=== PATIENT | male | born 1950 | race Caucasian/White ===

== ENCOUNTER 2017-09-11 19:26 | Emergency (ER) | payer MEDICARE ==
[~2017-09-11] VITALS: Ht 195.6 cm; Wt 102.1 kg
[~2017-09-11 19:26] MED LIST changes: -GABA300 PO
[2017-09-11] MEDS ORDERED: GABA300 PO (19:34)
[2017-09-11] MEDS ORDERED: CLOP75 PO (19:34)
[2017-09-11 23:00] LABS: Anion Gap 8 mmol/L (6-16); Blood Urea Nitrogen 15 mg/dL (8-24); Bun/Creatinine Ratio 12.5 (12.0-20.0); CO2, Blood 25 mmol/L (21-32); Calcium, Blood 7.8 mg/dL (8.5-10.1); Chloride, Blood 106 mmol/L (98-108); Glomerular Filtration Rate >60 (60-); Glucose, Blood 111 mg/dL (70-99); Potassium, Blood 3.7 mmol/L (3.5-5.5); Sodium, Blood 139 mmol/L (136-145); Troponin I <0.015 ng/mL (0.000-0.040)
[2017-09-11 23:26] LABS: BASOPHILS ABSOLUTE AUTO 0.02 K/mm3 (0.00-0.23); BASOPHILS PERCENT AUTO 0 % (0-2); EOSINOPHILS ABSOLUTE AUTO 0.21 K/mm3 (0.00-0.68); EOSINOPHILS PERCENT AUTO 3 % (0-6); IMMATURE GRAN ABSOLUTE AUTO 0.02 K/mm3 (0.00-0.10); IMMATURE GRAN PERCENT AUTO 0 % (0-1); LYMPHOCYTES ABSOLUTE AUTO 1.51 K/mm3 (0.84-5.20); LYMPHOCYTES PERCENT AUTO 20 % (21-46); MONOCYTES ABSOLUTE AUTO 0.55 K/mm3 (0.16-1.47); MONOCYTES PERCENT AUTO 7 % (4-13); Mean Corpuscular HGB 22.1 pg (26.0-34.0); Mean Corpuscular HGB Conc 28.6 g/dL (31.5-36.5); Mean Corpuscular Volume 78 fL (80-100); Mean Platelet Volume 9.2 fL (9.1-12.4); NEUTROPHILS ABSOLUTE AUTO 5.36 K/mm3 (1.96-9.15); NEUTROPHILS PERCENT AUTO 70 % (41-73); Platelet Count 402 K/mm3 (150-400); RDW Coefficient Variation 16.1 % (11.7-14.2); RDW Standard Deviation 45.3 fL (35.1-46.3); Red Blood Cell Count 2.71 M/mm3 (4.30-5.90); White Blood Cell Count 7.67 K/mm3 (4.00-11.30)
== END 2017-09-12 00:49 | disposition home or self-care (01) ==
LOC: ER 19:26
PROVIDERS: Emergency Medicine
DX: D64.9 Anemia, unspecified (principal); Z88.1 Allergy status to other antibiotic agents; Z88.0 Allergy status to penicillin; Z79.899 Other long term (current) drug therapy; Z87.891 Personal history of nicotine dependence
CPT/HCPCS: 36415; 36430; 80048; 84484; 85025; 86850; 86900; 86901; 86923; 93005; 93010; 99284-25; P9016

== ENCOUNTER → 2017-09-11 | Outpatient (CLI) | payer MEDICARE ==
[~2017-09-11] MED LIST: AMIT50 PO; ASPI81EC PO; CITA20 PO; CLOP75 PO; DAILY VITAMIN; DOCU100 PO; DOXA2 PO; GABA300 PO; LEVFLO500 PO; METO25ER PO; Metoprolol Succ25 MG PO; ONDA8 PO; OXYC30 PO; OXYC30ER PO; PRAV20 PO; Zithromax250 MG PO
[2017-09-11 18:16] LABS: BASOPHILS ABSOLUTE AUTO 0.04 K/mm3 (0.00-0.23); BASOPHILS PERCENT AUTO 0 % (0-2); EOSINOPHILS ABSOLUTE AUTO 0.16 K/mm3 (0.00-0.68); EOSINOPHILS PERCENT AUTO 2 % (0-6); Hematocrit 22.4 % (37.0-53.0); Hemoglobin 6.5 g/dL (13.5-17.5); IMMATURE GRAN ABSOLUTE AUTO 0.04 K/mm3 (0.00-0.10); IMMATURE GRAN PERCENT AUTO 0 % (0-1); LYMPHOCYTES ABSOLUTE AUTO 1.55 K/mm3 (0.84-5.20); LYMPHOCYTES PERCENT AUTO 17 % (21-46); MONOCYTES PERCENT AUTO 5 % (4-13); Mean Corpuscular HGB 22.2 pg (26.0-34.0); Mean Corpuscular Volume 77 fL (80-100); NEUTROPHILS ABSOLUTE AUTO 6.97 K/mm3 (1.96-9.15); NEUTROPHILS PERCENT AUTO 75 % (41-73); Platelet Count 441 K/mm3 (150-400); RDW Standard Deviation 44.7 fL (35.1-46.3); Red Blood Cell Count 2.93 M/mm3 (4.30-5.90); White Blood Cell Count 9.26 K/mm3 (4.00-11.30)
[2017-09-11 18:30] LABS: Albumin, Blood 3.1 g/dL (3.4-5.0); Albumin/Globulin Ratio 0.7 (0.8-1.8); Bilirubin, Total 0.2 mg/dL (0.1-1.0); Bun/Creatinine Ratio 10.4 (12.0-20.0); Calcium, Blood 8.5 mg/dL (8.5-10.1); Creatinine, Blood 1.44 mg/dL (0.60-1.20); Globulin, Blood 4.5 g/dL (2.2-4.0); Potassium, Blood 4.4 mmol/L (3.5-5.5); Total Protein, Blood 7.6 g/dL (6.4-8.2)
== END | disposition home or self-care (01) ==
LOC: LAB SHORT 18:10 → LAB EV 18:10
PROVIDERS: Physician Assistant
DX: I95.1 Orthostatic hypotension (principal)
CPT/HCPCS: 80053; 85025

== ENCOUNTER 2019-04-21 13:37 | Emergency (ER) | payer MEDICARE ==
[~2019-04-21] VITALS: Ht 198.1 cm; Wt 109.7 kg
[~2019-04-21 13:37] MED LIST changes: +GABA300 PO; +KETO10 PO
== END 2019-04-21 18:15 | disposition home or self-care (01) ==
LOC: ER 13:37
DX: S61.012A Laceration without foreign body of left thumb without damage to nail, initial encounter (principal); Z23 Encounter for immunization; Z87.891 Personal history of nicotine dependence; W26.8XXA Contact with other sharp object(s), not elsewhere classified, initial encounter
CPT/HCPCS: 12001; 90471; 90714; 99282-25

== ENCOUNTER 2020-09-02 10:11 | Emergency (ER) | payer MEDICARE ==
[~2020-09-02] VITALS: Ht 200.7 cm; Wt 122.5 kg
[2020-09-02 10:42] LABS: BASOPHILS ABSOLUTE AUTO 0.02 K/mm3 (0.00-0.23); BASOPHILS PERCENT AUTO 0 % (0-2); EOSINOPHILS ABSOLUTE AUTO 0.01 K/mm3 (0.00-0.68); EOSINOPHILS PERCENT AUTO 0 % (0-6); Hematocrit 45.8 % (37.0-53.0); Hemoglobin 14.9 g/dL (13.5-17.5); IMMATURE GRAN ABSOLUTE AUTO 0.02 K/mm3 (0.00-0.10); IMMATURE GRAN PERCENT AUTO 0 % (0-1); LYMPHOCYTES ABSOLUTE AUTO 0.53 K/mm3 (0.84-5.20); LYMPHOCYTES PERCENT AUTO 8 % (21-46); MONOCYTES ABSOLUTE AUTO 0.38 K/mm3 (0.16-1.47); MONOCYTES PERCENT AUTO 6 % (4-13); Mean Corpuscular HGB 28.8 pg (26.0-34.0); Mean Corpuscular HGB Conc 32.5 g/dL (31.5-36.5); Mean Corpuscular Volume 89 fL (80-100); Mean Platelet Volume 10.6 fL (9.1-12.4); NEUTROPHILS ABSOLUTE AUTO 5.84 K/mm3 (1.96-9.15); NEUTROPHILS PERCENT AUTO 86 % (41-73); Platelet Count 153 K/mm3 (150-400); RDW Coefficient Variation 14.2 % (11.7-14.2); RDW Standard Deviation 46.1 fL (35.1-46.3); Red Blood Cell Count 5.17 M/mm3 (4.30-5.90)
[2020-09-02] MEDS ORDERED: OMEP20ER PO (10:46)
[2020-09-02] MEDS ORDERED: ASPI81CH PO (10:46)
[2020-09-02 11:05] LABS: Alanine Aminotransfer (ALT/SGP 17 U/L (12-78); Albumin, Blood 3.8 g/dL (3.4-5.0); Albumin/Globulin Ratio 0.8 (0.8-1.8); Alk Phos 75 U/L (50-136); Anion Gap 8 mmol/L (6-16); Aspartate Aminotrans (AST/SGOT 17 U/L (12-37); Blood Urea Nitrogen 19 mg/dL (8-24); CO2, Blood 24 mmol/L (21-32); Calcium, Blood 8.7 mg/dL (8.5-10.1); Chloride, Blood 101 mmol/L (98-108); Creatinine, Blood 1.46 mg/dL (0.60-1.20); Globulin, Blood 4.8 g/dL (2.2-4.0); Glomerular Filtration Rate 51 (60-); Glucose, Blood 156 mg/dL (70-99); Potassium, Blood 3.9 mmol/L (3.5-5.5); Sodium, Blood 133 mmol/L (136-145); Total Protein, Blood 8.6 g/dL (6.4-8.2); Troponin I <0.015 ng/mL (0.000-0.040)
[2020-09-02 12:49] LABS: SARS-Cov-2 (COVID-19) PCR, MMC POSITIVE (NEGATIVE)
== END 2020-09-02 14:06 | disposition home or self-care (01) ==
LOC: ER 10:11
PROVIDERS: Emergency Medicine; Physician Assistant
DX: U07.1 COVID-19 (principal); J44.9 Chronic obstructive pulmonary disease, unspecified; I25.2 Old myocardial infarction; I25.10 Atherosclerotic heart disease of native coronary artery without angina pectoris; Z88.1 Allergy status to other antibiotic agents; Z88.0 Allergy status to penicillin; Z79.82 Long term (current) use of aspirin; Z79.899 Other long term (current) drug therapy
CPT/HCPCS: 36415; 71046; 71260; 80053; 84484; 85025; 93005; 93010; 99285-25; Q9967; U0004

== ENCOUNTER 2020-09-08 12:29 | Inpatient (IN) | payer MEDICARE ==
[~2020-09-08] VITALS: Ht 200.7 cm; Wt 104.3 kg
[~2020-09-08 12:29] MED LIST changes: +ASPI81CH PO; +OMEP20ER PO
[2020-09-08 13:07] LABS: BASOPHILS ABSOLUTE AUTO 0.03 K/mm3 (0.00-0.23); BASOPHILS PERCENT AUTO 0 % (0-2); EOSINOPHILS ABSOLUTE AUTO 0.09 K/mm3 (0.00-0.68); EOSINOPHILS PERCENT AUTO 1 % (0-6); Hematocrit 41.8 % (37.0-53.0); Hemoglobin 13.7 g/dL (13.5-17.5); IMMATURE GRAN ABSOLUTE AUTO 0.03 K/mm3 (0.00-0.10); IMMATURE GRAN PERCENT AUTO 0 % (0-1); LYMPHOCYTES ABSOLUTE AUTO 1.05 K/mm3 (0.84-5.20); LYMPHOCYTES PERCENT AUTO 12 % (21-46); MONOCYTES ABSOLUTE AUTO 0.34 K/mm3 (0.16-1.47); MONOCYTES PERCENT AUTO 4 % (4-13); Mean Corpuscular HGB 28.6 pg (26.0-34.0); Mean Corpuscular HGB Conc 32.8 g/dL (31.5-36.5); Mean Corpuscular Volume 87 fL (80-100); Mean Platelet Volume 10.9 fL (9.1-12.4); NEUTROPHILS ABSOLUTE AUTO 7.02 K/mm3 (1.96-9.15); NEUTROPHILS PERCENT AUTO 82 % (41-73); Platelet Count 189 K/mm3 (150-400); RDW Coefficient Variation 14.1 % (11.7-14.2); Red Blood Cell Count 4.79 M/mm3 (4.30-5.90); White Blood Cell Count 8.56 K/mm3 (4.00-11.30)
[2020-09-08 13:14] LABS: Alanine Aminotransfer (ALT/SGP 23 U/L (12-78); Albumin, Blood 2.8 g/dL (3.4-5.0); Albumin/Globulin Ratio 0.6 (0.8-1.8); Alk Phos 72 U/L (50-136); Anion Gap 6 mmol/L (6-16); Aspartate Aminotrans (AST/SGOT 28 U/L (12-37); Bilirubin, Total 0.8 mg/dL (0.1-1.0); Blood Urea Nitrogen 20 mg/dL (8-24); Bun/Creatinine Ratio 15.5 (12.0-20.0); CO2, Blood 29 mmol/L (21-32); Calcium, Blood 8.4 mg/dL (8.5-10.1); Chloride, Blood 99 mmol/L (98-108); Creatinine, Blood 1.29 mg/dL (0.60-1.20); Globulin, Blood 4.9 g/dL (2.2-4.0); Glomerular Filtration Rate 55 (60-); Glucose, Blood 109 mg/dL (70-99); Potassium, Blood 3.5 mmol/L (3.5-5.5); Sodium, Blood 134 mmol/L (136-145); Total Protein, Blood 7.7 g/dL (6.4-8.2); Troponin I <0.015 ng/mL (0.000-0.040)
--- NOTE | 2020-09-08 19:09 | NUR ---
arrived from er, settled in rm, assessed and admit completed, call light in reach, saline locked, rm air, ls diminished in R base, a+o, able to answer assessment questions, sbar shared with noc nurse
[2020-09-09 04:41] LABS: BASOPHILS PERCENT AUTO 0 % (0-2); EOSINOPHILS PERCENT AUTO 0 % (0-6); Hematocrit 39.7 % (37.0-53.0); Hemoglobin 13.2 g/dL (13.5-17.5); IMMATURE GRAN ABSOLUTE AUTO 0.04 K/mm3 (0.00-0.10); IMMATURE GRAN PERCENT AUTO 0 % (0-1); LYMPHOCYTES ABSOLUTE AUTO 0.54 K/mm3 (0.84-5.20); LYMPHOCYTES PERCENT AUTO 6 % (21-46); MONOCYTES ABSOLUTE AUTO 0.12 K/mm3 (0.16-1.47); MONOCYTES PERCENT AUTO 1 % (4-13); Mean Corpuscular HGB 28.9 pg (26.0-34.0); Mean Corpuscular HGB Conc 33.2 g/dL (31.5-36.5); Mean Corpuscular Volume 87 fL (80-100); Mean Platelet Volume 10.6 fL (9.1-12.4); NEUTROPHILS ABSOLUTE AUTO 8.87 K/mm3 (1.96-9.15); NEUTROPHILS PERCENT AUTO 93 % (41-73); Platelet Count 186 K/mm3 (150-400); RDW Coefficient Variation 13.9 % (11.7-14.2); RDW Standard Deviation 44.9 fL (35.1-46.3); Red Blood Cell Count 4.56 M/mm3 (4.30-5.90); White Blood Cell Count 9.57 K/mm3 (4.00-11.30)
--- NOTE | 2020-09-09 04:45 | NUR ---
SHIFT SUMMARY ASSUMED CARE OF PT AT 1900. PT IS A/OX4. HEART SOUNDS REGULAR. UPON VITALS PT O2 SATURATION WAS 60%, PT DID NOT C/O SOB BUT HIS MOUTH AND NOSE WERE DISCOLORED, PT WAS PUT ON 7L NC TO REACH 85%. RT WAS CONSULTED. PT IS NOW ON HIGH FLOW AT 14L WITH SATURATIONS AT 88-90%. PT WAS NONCOMPLIANT WITH CPAP. LUNG SOUNDS HAVE CRACKLES AT THE BASES AND EXP WHEEZING T/O. PT WAS INDEPENDENT TO BATHROOM. CALL LIGHT IN REACH, BED IN LOWEST POSTION.
[2020-09-09 05:04] LABS: Bun/Creatinine Ratio 22.1 (12.0-20.0); Calcium, Blood 8.4 mg/dL (8.5-10.1); Creatinine, Blood 1.22 mg/dL (0.60-1.20); Potassium, Blood 3.6 mmol/L (3.5-5.5)
--- NOTE | 2020-09-09 19:21 | NUR ---
a+o, call light in reach, independat in rm, saline locked, 15l via nc, independant in rm sba with lines, calls appropriatly, medicated as prescribed, tried to reduce o2 but rapid drop in o2 level occured, bsr shared with noc nurse and pt
--- NOTE | 2020-09-10 06:20 | NUR ---
SHIFT SUMMARY ASSUMED CARE OF PT AT 1900. PT IS A/OX4. HEART SOUNDS REGULAR, LUNG SOUNDS HAVE CRACKLES AND WHEEXING T/O. PT HAS OCCASIONAL WET COUGH. PT IS ON 15L HIGH FLOW NC. PT DESATURATES WITH ACTIVITY AND TAKES A COUPLE MIN TO GET BACK UP TO 88%. PT IS INDEPENDNT TO BATHROOM. PT WAS VERY SWEATY T/O THE NIGHT AND COMPLAINED OF BEING COLD PT WAS AFEBRILE. CALL LIGHT IN REACH, BED IN LOWEST POSTION.
--- NOTE | 2020-09-10 17:38 | NUR ---
SUMMARY PT SITTING UP IN BED WATCHING TV, PT HAS BEEN INDEPENDENT IN THE ROOM, PT REMAINS ON 15L HIGH FLOW O2, PT DESATS WITH ACTIVITY INTO THE 80'S, TAKES A FEW MINUTES TO RECOVER, ENCOURAGED PT TO PRONE WHEN ABLE, PT REPORTS BREATHING BETTER AFTER PRONING, PT DENIES ANY PAIN OR NAUSEA, VSS, WILL CONT TO MONITOR
--- NOTE | 2020-09-11 05:51 | NUR ---
SHIFT SUMMARY A/OX4, PLEASANT AND COOPERATIVE WITH CARE. DENIES PAIN AT THIS TIME. CURRENTLY ON AIRVO 60L WITH FIO2 OF 89% CONT. BIOX WITH SATS GREATER THAN 92. IND IN ROOM WITH FWW. VSS, NO ACUTE CHANGES AT THIS TIME. BED IN LOWEST POSITION WITH CALL LIGHT IN REACH. WILL CONTINUE TO MONITOR AND REPORT TO ONCOMING RN.
--- NOTE | 2020-09-11 19:13 | NUR ---
Shift Summary AOx4, pleasant and cooperative with care. Up to bathroom independently. Sats drops with ambulation to mid 70's. Having patient change from AirVo to 15L HF NC during ambulation to sustain oxygen supplementation. Denies pain, nausea, vomiting, diarrhea. Patient has no teeth. Offered to change diet to mech soft, patient declined. Follows instructions well, calls for needs appropriately. Worked with PT this shift. Report given to night CAR Mcgee.
--- NOTE | 2020-09-12 18:18 | NUR ---
Shift Summary A/Ox4, denies pain. C/O epistaxis last night d/t dry nasal passages. NS nasal spray ordered by Dr. Sheth. No episodes of epstaxis today. Continues to refuse mech soft and soft bite size diet, states "not hungry" because not physically active. PO fluid intake is good. L/S are coarse today with some expiratory wheezes. Dyspneic with exertion, continues to desat with activity but O2 remained above 83% and quickly rebounds/maintains above 87%. Independently prones as needed. Airvo 60 LPM, 60% FiO2. WCTM.
--- NOTE | 2020-09-13 05:07 | NUR ---
SHIFT SUMMARY A/OX4, IND IN ROOM WITH FWW. CURRENTLY ON AIRVO 60L WITH SATS GREATER THAN 90. PT ABLE TO PRONE SELF T/O NIGHT. VSS, NO ACUTE CHANGES AT THIS TIME. BED IN LOWEST POSITION WITH CALL LIGHT IN REACH. WILL CONTINUE TO MONITOR AND REPORT TO ONCOMING RN.
--- NOTE | 2020-09-13 16:47 | NUR ---
NO ACUTE CHANGES. PT REMAINS ON 60 AIR VO AND 15L HIGH FLOW. HE HAS HAD NO COMPLAINTS, HE CONTINUES TO DESAT TO THE LOW 80'S WITH EXERCTION. PT IS INDEPENDENT IN THE ROOM. CALL LIGHT WITHIN REACH.
[2020-09-14 05:02] LABS: Hemoglobin 13.2 g/dL (13.5-17.5); Mean Corpuscular Volume 88 fL (80-100); Mean Platelet Volume 10.4 fL (9.1-12.4); Platelet Count 371 K/mm3 (150-400); RDW Coefficient Variation 14.1 % (11.7-14.2); Red Blood Cell Count 4.55 M/mm3 (4.30-5.90); White Blood Cell Count 13.77 K/mm3 (4.00-11.30)
[2020-09-14 05:22] LABS: Anion Gap 3 mmol/L (6-16); Blood Urea Nitrogen 32 mg/dL (8-24); Bun/Creatinine Ratio 29.4 (12.0-20.0); CO2, Blood 29 mmol/L (21-32); Calcium, Blood 8.2 mg/dL (8.5-10.1); Chloride, Blood 104 mmol/L (98-108); Creatinine, Blood 1.09 mg/dL (0.60-1.20); Glomerular Filtration Rate >60 (60-); Glucose, Blood 142 mg/dL (70-99); Potassium, Blood 4.5 mmol/L (3.5-5.5); Sodium, Blood 136 mmol/L (136-145)
--- NOTE | 2020-09-14 19:18 | NUR ---
NO ACUTE CHANGES THIS SHIFT. PATIENT REMAINS ON HFNC AT 60L WITH FIO2 AT 85%. PATIENT SWITCHES FROM AIRVO TO NC AT 15L TO AMBULATE TO THE RESTROOM. A/OX4, UP INDEPENDENT IN ROOM. CALLS APPROPRIATELY FOR ASSISTANCE. TOLERATING DIET. DENIES ANY PAIN OR DISCOMFORT.
--- NOTE | 2020-09-15 05:27 | NUR ---
SCIENCE CENTER DISPLAY BUILDER SUMMARY NO ACUTE CHANGES THIS SHIFT. PT AAOX4 AND PLEASANT. INDEPENDENT IN ROOM. REMAINS ON AIRVO AT 60L 85% FIO2. PT REPORTS THAT HIS BREATHING IS IMPROVING A LITTLE BIT EACH DAY AND THAT HE DOESN'T GET SOB WHEN HE GETS UP TO THE BATHROOM. STILL USING HIGH FLOW NC AT 15L WHEN HE GETS UP TO BATHROOM, O2 SATS OCCASIONALLY WILL DROP TO MID 80'S DURING THIS TIME. VSS, WILL CONTINUE TO MONITOR.
--- NOTE | 2020-09-15 18:04 | NUR ---
NO ACUTE CHANGES THIS SHIFT. PATIENT REMAINS ON 60L O2 TO FIO2 AT 83%. SATS 90- 92% AT REST. PATIENT DOES DESAT TO ABOUT 86-88% WITH ACTIVITY, BUT DOES RECOVER QUICKLY. PATIENT IS INDEPENDENT IN ROOM AND CALLS APPROPRIATELY FOR ASSISTANCE.
[2020-09-16 05:13] LABS: BASOPHILS ABSOLUTE AUTO 0.02 K/mm3 (0.00-0.23); BASOPHILS PERCENT AUTO 0 % (0-2); EOSINOPHILS ABSOLUTE AUTO 0.04 K/mm3 (0.00-0.68); EOSINOPHILS PERCENT AUTO 0 % (0-6); Hemoglobin 13.9 g/dL (13.5-17.5); IMMATURE GRAN ABSOLUTE AUTO 0.17 K/mm3 (0.00-0.10); IMMATURE GRAN PERCENT AUTO 1 % (0-1); LYMPHOCYTES ABSOLUTE AUTO 0.57 K/mm3 (0.84-5.20); LYMPHOCYTES PERCENT AUTO 4 % (21-46); MONOCYTES ABSOLUTE AUTO 0.48 K/mm3 (0.16-1.47); MONOCYTES PERCENT AUTO 4 % (4-13); Mean Corpuscular HGB 29.2 pg (26.0-34.0); Mean Corpuscular HGB Conc 33.1 g/dL (31.5-36.5); Mean Corpuscular Volume 88 fL (80-100); Mean Platelet Volume 10.1 fL (9.1-12.4); NEUTROPHILS ABSOLUTE AUTO 12.08 K/mm3 (1.96-9.15); NEUTROPHILS PERCENT AUTO 90 % (41-73); Platelet Count 354 K/mm3 (150-400); RDW Standard Deviation 44.9 fL (35.1-46.3); Red Blood Cell Count 4.76 M/mm3 (4.30-5.90); White Blood Cell Count 13.36 K/mm3 (4.00-11.30)
[2020-09-16 05:38] LABS: Albumin, Blood 2.4 g/dL (3.4-5.0); Anion Gap 4 mmol/L (6-16); Blood Urea Nitrogen 33 mg/dL (8-24); Bun/Creatinine Ratio 33.3 (12.0-20.0); CO2, Blood 27 mmol/L (21-32); Calcium, Blood 8.4 mg/dL (8.5-10.1); Chloride, Blood 103 mmol/L (98-108); Creatinine, Blood 0.99 mg/dL (0.60-1.20); Glomerular Filtration Rate >60 (60-); Glucose, Blood 131 mg/dL (70-99); Magnesium, Blood 2.2 mg/dL (1.6-2.4); Phosphorus, Blood 3.3 mg/dL (2.5-4.9); Potassium, Blood 4.4 mmol/L (3.5-5.5); Sodium, Blood 134 mmol/L (136-145)
--- NOTE | 2020-09-16 05:54 | NUR ---
SHIFT SUMMARY NO ACUTE CHANGES TO REPORT THIS SHIFT. PT HAS RESTED MOST OF THE NIGHT AND HAS DENIED NEEDS, PT IS STILL ON AIRVO 60L, SATS ARE MAINTAINED GREATER THAN 95%. PT AMBULATES TO TO THE BATHROOM INDEPENDENTLY AND PLACES HIGH FLOW O2 WHEN AMBULATING. LUNGS ARE DIMINSHED T/O, HE REPORTS PRODUCTIVE COUGH. VITALS ARE STABLE. RESTFUL NIGHT, BED IN LOWEST POSITION, CALL LIGHT WITHIN REACH.
--- NOTE | 2020-09-16 18:08 | NUR ---
PT IS WEANING OFF HIGH FLOW . HE WAS ABLE TO GIVE HIMSELF BEDBATH WITH NO ISSUES. UP IN RECLINER AND IMPROVING THROUGHOUT THE SHIFT. HE IS ALERT AND ORIENTED AND ABLE TO EXPRESS ANY NEEDS. NO COMPLAINTS OF PAIN THIS SHIFT. CALL LIGHT WITHIN REACH.
--- NOTE | 2020-09-17 05:24 | NUR ---
SHIFT SUMMARY: PT IS ALERT AND ORIENTED. PT IS CALM AND COOPERATIVE WITH CARE. PT CALLS APPROPRIATELY. PT IS INDEPENDENT IN THE ROOM. PT ON AIRVO 45L @ 45%, KEEPING SATS > 90%. PT DENIES PAIN, NAUSEA, AND VOMITING. PT REPORTS SOB UPON EXERTION. PT SLEPT MUCH OF THE NIGHT. NO ACUTE CHANGES OR COMPLICATIONS THIS SHIFT. BED IN LOW POSITION, CALL LIGHT WITHIN REACH. WILL CONTINUE TO MONITOR.
--- NOTE | 2020-09-17 19:01 | NUR ---
SHIFT SUMMARY PT IN DROPLET ISO FOR COVID. VERY PLEASANT AND CO-OP WITH CARE. INDEPENDENT IN RM. WILL CALL FOR ASSIST IF NEEDED. CONTINUES TO IMPROVE SLOWLY. NO ACUTE CHANGES TO PRESENT THIS SHIFT. REPORT GIVEN TO NAKUL YOON
--- NOTE | 2020-09-18 17:20 | NUR ---
SHIFT SUMMARY NO ACUTE CHANGES TO PRESENT THIS SHIFT. PT REPORTS BREATHING IMPROVED TODAY. BIOX REMAINING IN LOW 90'S MOST OF THE DAY. HAS NOT DECREASED TODAY, LIKE YESTERDAY WITH ACTIVITY OR TALKING ON PHONE. PT UP TO BSC INDEPENDENTLY FOR EXLRG BM. EATING AND DRINKING, VOIDING WELL. DENIES FURTHER NEEDS. CALL LT IN REACH.
--- NOTE | 2020-09-19 05:02 | NUR ---
SUMMARY NO NEW ISSUES NOTED. PT CONTINUES TO HAVE SOB W/ EXERTION. PT SPO2 >90% T/O SHIFT. PT SLEPT WELL T/O SHIFT. PT SLEEPING AND IN NO DISTRESS. CALL LIGHT IN REACH.
--- NOTE | 2020-09-19 17:57 | NUR ---
PT IS A/OX4, COOPERATIVE. THE PT SEEMS SOMEWHAT DEPRESSED BECAUSE OF HIS ADMISSION. TODAY THE PT WAS TAKEN OFF THE AIRVO BY THE REPIRATORY THERAPIST AND IS ON HIGH FLOW OXYGEN TITRATED DOWN TO 7L/MIN AT THIS TIME. O2 SAT'S ARE 87 TO 89 %. O2 TITRATED UP TO 8.5L/MIN, PT IS RESTING IN BED AT THIS TIME. THE PT DENIES PAIN, HOWEVER, REPORTS INDIGESTION AND DECLINED DINNER, CALL LIGHT IN REACH, WILL CONTINUE TO MONITOR AND ASSESS FOR CHANGES
[2020-09-20 05:05] LABS: BASOPHILS ABSOLUTE AUTO 0.01 K/mm3 (0.00-0.23); BASOPHILS PERCENT AUTO 0 % (0-2); EOSINOPHILS ABSOLUTE AUTO 0.11 K/mm3 (0.00-0.68); EOSINOPHILS PERCENT AUTO 1 % (0-6); Hematocrit 39.5 % (37.0-53.0); IMMATURE GRAN ABSOLUTE AUTO 0.09 K/mm3 (0.00-0.10); IMMATURE GRAN PERCENT AUTO 1 % (0-1); LYMPHOCYTES PERCENT AUTO 6 % (21-46); MONOCYTES ABSOLUTE AUTO 0.46 K/mm3 (0.16-1.47); MONOCYTES PERCENT AUTO 4 % (4-13); Mean Corpuscular HGB 29.1 pg (26.0-34.0); Mean Corpuscular HGB Conc 32.9 g/dL (31.5-36.5); Mean Corpuscular Volume 89 fL (80-100); Mean Platelet Volume 10.4 fL (9.1-12.4); NEUTROPHILS ABSOLUTE AUTO 10.46 K/mm3 (1.96-9.15); NEUTROPHILS PERCENT AUTO 88 % (41-73); Platelet Count 229 K/mm3 (150-400); RDW Coefficient Variation 14.5 % (11.7-14.2); RDW Standard Deviation 46.4 fL (35.1-46.3); Red Blood Cell Count 4.46 M/mm3 (4.30-5.90); White Blood Cell Count 11.83 K/mm3 (4.00-11.30)
--- NOTE | 2020-09-20 05:22 | NUR ---
SHIFT SUMMARY: PT IS ALERT AND ORIENTED. PT IS CALM AND COOPERATIVE WITH CARE. PT CALLS APPROPRIATELY. PT IS INDEPENDENT IN THE ROOM. PT REPORTS IMPROVEMENT IN HIS BREATHING, CURRENTLY NEEDING 15 L VIA HF NC TO KEEP SATS > 90%. PT DENIES PAIN, NAUSEA, AND VOMITING. PT SLEPT MUCH OF THE NIGHT. NO ACUTE CHANGES OR COMPLICATIONS. WILL REPORT TO DAY NURSE.
[2020-09-20 05:32] LABS: Anion Gap 6 mmol/L (6-16); Blood Urea Nitrogen 26 mg/dL (8-24); Bun/Creatinine Ratio 22.2 (12.0-20.0); CO2, Blood 28 mmol/L (21-32); Calcium, Blood 8.1 mg/dL (8.5-10.1); Chloride, Blood 103 mmol/L (98-108); Creatinine, Blood 1.17 mg/dL (0.60-1.20); Glomerular Filtration Rate >60 (60-); Glucose, Blood 103 mg/dL (70-99); Potassium, Blood 3.7 mmol/L (3.5-5.5); Sodium, Blood 137 mmol/L (136-145)
--- NOTE | 2020-09-20 17:17 | NUR ---
PT IS A/OX3, PLEASANT AND COOPERATIVE. THE PT IS UP WITH MINIMAL ASSIST TO THE CHAIR. THE PT WAS UP IN [facility] FOR A FEW HOURS THIS AM. PT IS NOW BACK INTO BED. THE PT IS ON 12L/MIN O2 VIA HIGH KRYSTAL NC SAT'S RANGE 87-91%. THE PT HAS AN OCCASIONAL PRODUCTIVE COUGH. PT WAS ENCOURAGED TO USE THE IS AT THE BEDSIDE.THE PT DENIED ANY PAIN SO FAR TODAY. CALL LIGHT IN REACH, WILL CONTINUE TO MONITOR AND ASSESS FOR CHANGES
--- NOTE | 2020-09-20 20:05 | NUR ---
ASSUMED CARE. JOANNE IS AOX3. JUST HAD A SMALL NOSE BLEED. OFFERED TO GIVE HIM SOME [place] JELLY BUT HE HAS SOME NASAL SPRAY INSTEAD. ENCOURAGED HIM TO USE IT MORE OFTEN TO KEEP HIS NOSTRILS MOIST. STATES HE FEELS HE IS DOING BETTER. BUT IS DISAPPOINTED THAT HE IS BACK ON OXYGEN AFTER WORKING SO HARD TO GET OFF OF IT AFTER HAVING LUNG CANCER. ENCOURAGED HIM TO KEEP DOING HIS EXERCISES AND WORKING TO GET BACK TO THAT POINT. LUNG SOUNDS CLEAR IN UPPER LOBES BUT CRACKLES IN THE MID TO LOWER LOBES. COUGH IS PRODUCTIVE AT TIMES. IS ABLE TO GET TO THE SIDE OF BED BUT HE DOES DESAT WHEN HE DOES. DESATS DURING TALKING DOWN TO 87-89%. BUT HE DOES BOUNCE BACK. O2 IS CURRENTLY AT 10L HIGH FLOW. RT IS NOW IN ROOM TO GIVE BREATHING TREATMENT. CALL LIGHT WITH IN REACH.
--- NOTE | 2020-09-20 22:11 | NUR ---
PATIENT CURRENTLY SLEEPING IN UP RIGHT POSITION. SATS MAINTAINING ON 10L OF HIGH FLOW RIGHT AT 90-92%. NO SIGN OF RESPIRTORY DISTRESS. CALL LIGHT IS IN REACH. WILL CONITNUE TO MONITOR.
--- NOTE | 2020-09-21 00:10 | NUR ---
GOT UP TO USE THE URINAL. SATS DECREASED TO 83%. THEN DOWN TO 76%. ONCE BACK TO BED HE RETURNED TO ABOVE 92%. WILL CONTINUE TO MONITOR.
[2020-09-21 05:14] LABS: BASOPHILS ABSOLUTE AUTO 0.02 K/mm3 (0.00-0.23); BASOPHILS PERCENT AUTO 0 % (0-2); EOSINOPHILS ABSOLUTE AUTO 0.13 K/mm3 (0.00-0.68); EOSINOPHILS PERCENT AUTO 1 % (0-6); Hematocrit 39.6 % (37.0-53.0); Hemoglobin 12.9 g/dL (13.5-17.5); IMMATURE GRAN ABSOLUTE AUTO 0.07 K/mm3 (0.00-0.10); IMMATURE GRAN PERCENT AUTO 1 % (0-1); LYMPHOCYTES ABSOLUTE AUTO 0.66 K/mm3 (0.84-5.20); LYMPHOCYTES PERCENT AUTO 5 % (21-46); MONOCYTES PERCENT AUTO 5 % (4-13); Mean Corpuscular HGB 28.9 pg (26.0-34.0); Mean Corpuscular HGB Conc 32.6 g/dL (31.5-36.5); Mean Corpuscular Volume 89 fL (80-100); Mean Platelet Volume 10.6 fL (9.1-12.4); NEUTROPHILS ABSOLUTE AUTO 11.25 K/mm3 (1.96-9.15); NEUTROPHILS PERCENT AUTO 88 % (41-73); Platelet Count 208 K/mm3 (150-400); RDW Coefficient Variation 14.6 % (11.7-14.2); RDW Standard Deviation 47.2 fL (35.1-46.3); Red Blood Cell Count 4.46 M/mm3 (4.30-5.90); White Blood Cell Count 12.73 K/mm3 (4.00-11.30)
[2020-09-21 05:42] LABS: Alanine Aminotransfer (ALT/SGP 41 U/L (12-78); Albumin, Blood 2.2 g/dL (3.4-5.0); Albumin/Globulin Ratio 0.5 (0.8-1.8); Alk Phos 89 U/L (50-136); Anion Gap 7 mmol/L (6-16); Aspartate Aminotrans (AST/SGOT 15 U/L (12-37); Blood Urea Nitrogen 24 mg/dL (8-24); Bun/Creatinine Ratio 21.2 (12.0-20.0); CO2, Blood 27 mmol/L (21-32); Chloride, Blood 102 mmol/L (98-108); Creatinine, Blood 1.13 mg/dL (0.60-1.20); Globulin, Blood 4.5 g/dL (2.2-4.0); Glomerular Filtration Rate >60 (60-); Glucose, Blood 105 mg/dL (70-99); Magnesium, Blood 2.2 mg/dL (1.6-2.4); Potassium, Blood 3.9 mmol/L (3.5-5.5); Sodium, Blood 136 mmol/L (136-145); Total Protein, Blood 6.7 g/dL (6.4-8.2)
--- NOTE | 2020-09-21 05:54 | NUR ---
SHIFT SUMMARY: AOX3. LUNG SOUNDS CRACKLES IN MID TO LOWER BASES. DYSPNEA WITH EXERTION AND TALKING, DROPPING SATS DOWN TO 86% BUT RECOVERS WHEN HE RETURNS TO REST. COUGH OCCATIONAL SOMETIMES PRODUCTIVE BUT NOT ALL THE TIME. DENIES ANY PAIN OR DISCOMFORT. USES URINAL AT BED SIDE. OXYGEN HIGH FLOW AT 11 LITERS. SLEPT WELL T/O THE NIGHT. NO NEEDS WERE NOTED. CALL LIGHT HAS REMAINED IN REACH. VS STABLE. NO ACUTE CHANGES TO REPORT.
--- NOTE | 2020-09-21 19:10 | NUR ---
ASSUMED CARE RECEIVED REPORT FROM CAR LINDSEY. NO ACUTE NEEDS ASSESSED AT THIS TIME. CALL LIGHT, POSSESSIONS IN REACH.
--- NOTE | 2020-09-21 19:16 | NUR ---
Pt frustrated and depressed this shift. came in for a short visit, RECOVERY ADVOCATE reports pt may be even more depressed after her visit since he cannot go home. Pt started on 12L O2, now back up to 15 L. Resp therapist called and consulted on plan. Pt will be assessed by RT shortly.
[2020-09-22 05:05] LABS: BASOPHILS ABSOLUTE AUTO 0.02 K/mm3 (0.00-0.23); BASOPHILS PERCENT AUTO 0 % (0-2); EOSINOPHILS ABSOLUTE AUTO 0.12 K/mm3 (0.00-0.68); EOSINOPHILS PERCENT AUTO 1 % (0-6); Hematocrit 38.3 % (37.0-53.0); Hemoglobin 12.4 g/dL (13.5-17.5); IMMATURE GRAN ABSOLUTE AUTO 0.06 K/mm3 (0.00-0.10); IMMATURE GRAN PERCENT AUTO 1 % (0-1); LYMPHOCYTES ABSOLUTE AUTO 0.55 K/mm3 (0.84-5.20); LYMPHOCYTES PERCENT AUTO 6 % (21-46); MONOCYTES ABSOLUTE AUTO 0.51 K/mm3 (0.16-1.47); MONOCYTES PERCENT AUTO 5 % (4-13); Mean Corpuscular HGB 28.4 pg (26.0-34.0); Mean Corpuscular HGB Conc 32.4 g/dL (31.5-36.5); Mean Corpuscular Volume 88 fL (80-100); Mean Platelet Volume 10.3 fL (9.1-12.4); NEUTROPHILS ABSOLUTE AUTO 8.71 K/mm3 (1.96-9.15); NEUTROPHILS PERCENT AUTO 87 % (41-73); Platelet Count 190 K/mm3 (150-400); RDW Coefficient Variation 14.6 % (11.7-14.2); RDW Standard Deviation 47.2 fL (35.1-46.3); Red Blood Cell Count 4.37 M/mm3 (4.30-5.90); White Blood Cell Count 9.97 K/mm3 (4.00-11.30)
--- NOTE | 2020-09-22 07:37 | NUR ---
STREET RAILWAY LINE INSTALLER SUMMARY PT RESTING, IN NAD. STATED HE SLEPT WELL T/O NIGHT. VS REVIEWED,WNL. MEDICATED X2 FOR PAIN, WITH GOOD EFFECT. O2 SATS STABLE ON 15L/HIGH FLOW NC T/O NIGHT, TITRATED DOWN TO 12L/NC THIS AM, 02 SATS IN 90'S. APPEARED TO BE IN GOOD SPIRITS THIS AM AFTER VISIT FROM YAZDANISM FRIENDS LAST EVENING. STATES HE'S FEELING BETTER TODAY. NO ACUTE NEEDS ASSESSED AT THIS TIME. CALL LIGHT AND POSSESSIONS IN REACH, BED IN LOW AND LOCKED POSITION. REPORT GIVEN TO CAR LINDSEY.
--- NOTE | 2020-09-22 19:10 | NUR ---
ASSUMED CARE RECEIVED REPORT FROM CAR LINDSEY. NO ACUTE NEEDS ASSESSED AT THIS TIME. CALL LIGHT, POSSESSIONS IN REACH, BED IN LOW AND LOCKED POSITION.
[2020-09-23 05:10] LABS: BASOPHILS PERCENT AUTO 0 % (0-2); EOSINOPHILS PERCENT AUTO 0 % (0-6); Hematocrit 38.9 % (37.0-53.0); Hemoglobin 12.6 g/dL (13.5-17.5); IMMATURE GRAN ABSOLUTE AUTO 0.04 K/mm3 (0.00-0.10); IMMATURE GRAN PERCENT AUTO 1 % (0-1); LYMPHOCYTES ABSOLUTE AUTO 0.37 K/mm3 (0.84-5.20); LYMPHOCYTES PERCENT AUTO 5 % (21-46); MONOCYTES ABSOLUTE AUTO 0.11 K/mm3 (0.16-1.47); MONOCYTES PERCENT AUTO 2 % (4-13); Mean Corpuscular HGB 28.8 pg (26.0-34.0); Mean Corpuscular HGB Conc 32.4 g/dL (31.5-36.5); Mean Corpuscular Volume 89 fL (80-100); Mean Platelet Volume 10.8 fL (9.1-12.4); NEUTROPHILS ABSOLUTE AUTO 6.51 K/mm3 (1.96-9.15); NEUTROPHILS PERCENT AUTO 93 % (41-73); Platelet Count 200 K/mm3 (150-400); RDW Coefficient Variation 14.6 % (11.7-14.2); RDW Standard Deviation 47.1 fL (35.1-46.3); Red Blood Cell Count 4.37 M/mm3 (4.30-5.90); White Blood Cell Count 7.03 K/mm3 (4.00-11.30)
[2020-09-23 05:46] LABS: Anion Gap 4 mmol/L (6-16); Blood Urea Nitrogen 24 mg/dL (8-24); Bun/Creatinine Ratio 23.5 (12.0-20.0); CO2, Blood 29 mmol/L (21-32); Calcium, Blood 8.8 mg/dL (8.5-10.1); Chloride, Blood 102 mmol/L (98-108); Creatinine, Blood 1.02 mg/dL (0.60-1.20); Glomerular Filtration Rate >60 (60-); Glucose, Blood 176 mg/dL (70-99); Potassium, Blood 4.5 mmol/L (3.5-5.5); Sodium, Blood 135 mmol/L (136-145)
--- NOTE | 2020-09-23 06:40 | NUR ---
CLINICAL ENGINEERING MANAGER SUMMARY PT RESTING, IN NAD. VS REVIEWED, O2 SATS IN 80'S-90'S, O2 TITRATED UP TO 15L/HFNC, HAD BEEN MAINTAINING ON 12L/HFNC T/O NIGHT. OTHER VS WNL. PAIN MANAGED WITH MEDS PER EMAR, WITH GOOD RELIEF. PT APPEARED TO SLEEP WELL OVERNIGHT. NO ACUTE NEEDS ASSESSED AT THIS TIME. CALL LIGHT, POSSESSIONS IN REACH, BED IN LOW AND LOCKED POSITION. WILL REPORT OFF TO ONCOMING RN.
--- NOTE | 2020-09-23 10:20 | NUR ---
Pt in good spirits today: states the visits from his mosque friends has really helped his depression and sadness over prolonged hospital stay. Pt on 15 liters this morning, high flow. Denies pain at this time, morning medications given without difficulty. Discussed repositioning frequently in bed to stay off of his coccyx. Pt discovered a small area of breakdown yesterday in the right gluteal fold. Mepilex intact and applied by NOC shift nurse for protection. No other concerns from the patient at this time, will continue to monitor. This RN encouraged pt to phone call friends today to see if anyone can visit with him today. Pt verbalizes understanding of repositioning coaching.
--- NOTE | 2020-09-23 19:15 | NUR ---
ASSUMED CARE RECEIVED REPORT FROM CAR LINDSEY. PT RESTING, IN NAD. NO ACUTE NEEDS ASSESSED. CALL LIGHT, POSSESSIONS IN REACH.
[2020-09-24 05:02] LABS: BASOPHILS ABSOLUTE AUTO 0.02 K/mm3 (0.00-0.23); BASOPHILS PERCENT AUTO 0 % (0-2); EOSINOPHILS PERCENT AUTO 0 % (0-6); Hemoglobin 12.5 g/dL (13.5-17.5); IMMATURE GRAN ABSOLUTE AUTO 0.09 K/mm3 (0.00-0.10); IMMATURE GRAN PERCENT AUTO 1 % (0-1); LYMPHOCYTES ABSOLUTE AUTO 0.51 K/mm3 (0.84-5.20); LYMPHOCYTES PERCENT AUTO 4 % (21-46); MONOCYTES PERCENT AUTO 3 % (4-13); Mean Corpuscular HGB 28.7 pg (26.0-34.0); Mean Corpuscular HGB Conc 32.1 g/dL (31.5-36.5); Mean Corpuscular Volume 90 fL (80-100); Mean Platelet Volume 10.2 fL (9.1-12.4); NEUTROPHILS ABSOLUTE AUTO 11.38 K/mm3 (1.96-9.15); NEUTROPHILS PERCENT AUTO 92 % (41-73); Platelet Count 203 K/mm3 (150-400); RDW Coefficient Variation 14.6 % (11.7-14.2); RDW Standard Deviation 47.7 fL (35.1-46.3); Red Blood Cell Count 4.35 M/mm3 (4.30-5.90)
--- NOTE | 2020-09-24 06:24 | NUR ---
BRICK PAVING CHECKER SUMMARY PT RESTING, IN NAD. APPEARED TO SLEEP WELL T/O NIGHT. VS REVIEWED,WNL; O2 SATS STABLE ON 13L/HFNC. PT HAS BEEN INDEPENDENT IN ROOM THIS SHIFT, BUT CALLS APPROPRIATELY FOR HELP. NO ACUTE CHANGES TO REPORT OVERNIGHT. DENIES NEEDS AT THIS TIME. CALL LIGHT, POSSESSIONS IN REACH, BED IN LOW AND LOCKED POSITION. WILL REPORT OFF TO ONCOMING RN.
--- NOTE | 2020-09-24 17:13 | NUR ---
SHIFT SUMMARY PATIENT ALERT AND ORIENTED THIS SHIFT. PATIENT IS INDEPENDENT IN THE ROOM. PATIENT REMAINS ON 13L O2. PATIENT'S O2 SATS REMAINING 88-LOW 90S WHEN AT REST. PATIENT DESATS TO MID-LOW 80S WHEN ACTIVE, RETURNS TO >88 WITHIN 30-60 SECONDS. PATIENT'S SPOUSE IN THE ROOM VISITING THIS AFTERNOON. MEPILEX REPLACED ON COXXYX THIS SHIFT. PATIENT CURRENTLY SITTING UP IN BED VISITING WITH .
[2020-09-25 06:09] LABS: BASOPHILS ABSOLUTE AUTO 0.01 K/mm3 (0.00-0.23); BASOPHILS PERCENT AUTO 0 % (0-2); EOSINOPHILS ABSOLUTE AUTO 0.01 K/mm3 (0.00-0.68); EOSINOPHILS PERCENT AUTO 0 % (0-6); Hematocrit 37.7 % (37.0-53.0); Hemoglobin 12.1 g/dL (13.5-17.5); IMMATURE GRAN ABSOLUTE AUTO 0.07 K/mm3 (0.00-0.10); IMMATURE GRAN PERCENT AUTO 1 % (0-1); LYMPHOCYTES ABSOLUTE AUTO 0.61 K/mm3 (0.84-5.20); LYMPHOCYTES PERCENT AUTO 6 % (21-46); MONOCYTES ABSOLUTE AUTO 0.49 K/mm3 (0.16-1.47); MONOCYTES PERCENT AUTO 5 % (4-13); Mean Corpuscular HGB 28.8 pg (26.0-34.0); Mean Corpuscular HGB Conc 32.1 g/dL (31.5-36.5); Mean Corpuscular Volume 90 fL (80-100); NEUTROPHILS ABSOLUTE AUTO 9.72 K/mm3 (1.96-9.15); NEUTROPHILS PERCENT AUTO 89 % (41-73); Platelet Count 211 K/mm3 (150-400); RDW Coefficient Variation 14.7 % (11.7-14.2); White Blood Cell Count 10.91 K/mm3 (4.00-11.30)
--- NOTE | 2020-09-25 06:33 | NUR ---
SHIFT SUMMARY NO ACUTE CHANGES THIS SHIFT, A&O, MEDICATED X1 FOR GENERAL DISCOMFORT(TYLENOL), INDEP AT BEDSIDE W/URINAL, O2 SATS HAVE REMAINED IN MID TO HIGH 90'S W/MASK ON T/O THE NIGHT, PT SLEEPING AT THIS TIME, CALL LIGHT IN REACH, WILL CONT TO MONITOR UNTIL REPORT GIVEN TO DAY RN.
[2020-09-25 06:34] LABS: Alanine Aminotransfer (ALT/SGP 94 U/L (12-78); Albumin, Blood 2.1 g/dL (3.4-5.0); Albumin/Globulin Ratio 0.5 (0.8-1.8); Alk Phos 96 U/L (50-136); Anion Gap 5 mmol/L (6-16); Aspartate Aminotrans (AST/SGOT 41 U/L (12-37); Bilirubin, Total 0.4 mg/dL (0.1-1.0); Blood Urea Nitrogen 27 mg/dL (8-24); CO2, Blood 30 mmol/L (21-32); Calcium, Blood 8.5 mg/dL (8.5-10.1); Chloride, Blood 103 mmol/L (98-108); Creatinine, Blood 1.08 mg/dL (0.60-1.20); Globulin, Blood 4.4 g/dL (2.2-4.0); Glomerular Filtration Rate >60 (60-); Glucose, Blood 112 mg/dL (70-99); Potassium, Blood 4.4 mmol/L (3.5-5.5); Sodium, Blood 138 mmol/L (136-145); Total Protein, Blood 6.5 g/dL (6.4-8.2)
--- NOTE | 2020-09-25 17:13 | NUR ---
SHIFT SUMMARY PATIENT ALERT AND ORIENTED THIS SHIFT. PATIENT IS UP INDEPENDENTLY IN THE ROOM TO USE THE URINAL AND RETRIEVE BELONGINGS. PATIENT IS ON 13L HIGH FLOW O2 OR HUMIDIFIED MASK AT 60% O2 THIS SHIFT. PATIENT'S O2 SATS REMAINING OVER 88 WHEN PATIENT IS AT REST. SATS OCCASIONALLY DIP TO LOW 80S WHEN PATIENT IS UP OR TALKING. NO ACUTE CHANGES THIS SHIFT. PATIENT IS CURRENTLY SITTING UP IN BED WATCHING TELEVISION.
--- NOTE | 2020-09-25 19:42 | NUR ---
RECEIVED REPORT FROM MELBA YOON. COVID POSITIVE. CURRENTLY ON 12-13L HIGH FLOW NC, SWITCHES BACK AND FORTH TO AEROSOL MASK. BIOX 88-92%. WILL CONTINUE TO PROVIDE CARE T/O SHIFT. CALL LT IN REACH.
--- NOTE | 2020-09-25 20:15 | NUR ---
PT SITTING IN BED WITH HOB RAISED. HIGH FLOW NC IN PLACE, SATS 90%. STATES HE HAS EVERYTHING HE NEEDS AND DOESN'T NEED ANYTHING AT THIS TIME. CALL LT IN REACH.
--- NOTE | 2020-09-25 22:16 | NUR ---
PT BACK TO BED AFTER USING BSC. HAD A LARGE, FORMED STOOL, MIXED WITH URINE. PT STATES HE DOES NEED TO USE THE MASK FOR OXYGEN, WILL CONTINUE TO WEAR THE 13L VIA HIGH FLOW NC. NO OTHER NEEDS. CALL LT IN REACH.
--- NOTE | 2020-09-26 00:06 | NUR ---
PT RESTING QUIETLY. 94% CONT BIOX. CALL LT IN REACH.
[2020-09-26 05:01] LABS: BASOPHILS ABSOLUTE AUTO 0.02 K/mm3 (0.00-0.23); BASOPHILS PERCENT AUTO 0 % (0-2); EOSINOPHILS ABSOLUTE AUTO 0.03 K/mm3 (0.00-0.68); EOSINOPHILS PERCENT AUTO 0 % (0-6); Hematocrit 39.9 % (37.0-53.0); Hemoglobin 12.8 g/dL (13.5-17.5); IMMATURE GRAN ABSOLUTE AUTO 0.06 K/mm3 (0.00-0.10); IMMATURE GRAN PERCENT AUTO 1 % (0-1); LYMPHOCYTES ABSOLUTE AUTO 0.64 K/mm3 (0.84-5.20); LYMPHOCYTES PERCENT AUTO 7 % (21-46); MONOCYTES ABSOLUTE AUTO 0.47 K/mm3 (0.16-1.47); MONOCYTES PERCENT AUTO 5 % (4-13); Mean Corpuscular HGB Conc 32.1 g/dL (31.5-36.5); Mean Corpuscular Volume 90 fL (80-100); Mean Platelet Volume 10.4 fL (9.1-12.4); NEUTROPHILS ABSOLUTE AUTO 8.53 K/mm3 (1.96-9.15); NEUTROPHILS PERCENT AUTO 88 % (41-73); Platelet Count 190 K/mm3 (150-400); RDW Coefficient Variation 14.6 % (11.7-14.2); RDW Standard Deviation 48.1 fL (35.1-46.3); Red Blood Cell Count 4.42 M/mm3 (4.30-5.90); White Blood Cell Count 9.75 K/mm3 (4.00-11.30)
--- NOTE | 2020-09-26 05:09 | NUR ---
PT RESTING QUIETLY. CALL LT IN REACH.
[2020-09-26 05:33] LABS: Alanine Aminotransfer (ALT/SGP 152 U/L (12-78); Albumin, Blood 2.2 g/dL (3.4-5.0); Albumin/Globulin Ratio 0.5 (0.8-1.8); Alk Phos 108 U/L (50-136); Anion Gap 6 mmol/L (6-16); Aspartate Aminotrans (AST/SGOT 50 U/L (12-37); Bilirubin, Total 0.4 mg/dL (0.1-1.0); Blood Urea Nitrogen 29 mg/dL (8-24); CO2, Blood 30 mmol/L (21-32); Calcium, Blood 8.4 mg/dL (8.5-10.1); Chloride, Blood 102 mmol/L (98-108); Globulin, Blood 4.4 g/dL (2.2-4.0); Glomerular Filtration Rate >60 (60-); Glucose, Blood 107 mg/dL (70-99); Magnesium, Blood 2.2 mg/dL (1.6-2.4); Phosphorus, Blood 3.5 mg/dL (2.5-4.9); Potassium, Blood 4.2 mmol/L (3.5-5.5); Sodium, Blood 138 mmol/L (136-145); Total Protein, Blood 6.6 g/dL (6.4-8.2)
--- NOTE | 2020-09-26 05:49 | NUR ---
SHIFT SUMMARY: A/O AND INDEP IN RM. CURRENTLY ON 13L VIA HIGH FLOW NC. SATS 88-94%. DESATS WITH EXERTION. PT IS ABLE TO BRING SATS UP. HAD LARGE BM. VOIDED WELL. NO COMPLAINTS. WILL CONTINUE TO PROVIDE CARE UNTIL SHIFT REPORT.
--- NOTE | 2020-09-26 18:30 | NUR ---
SHIFT SUMMARY TOLERATING WEANING OF 02. SATURATIONS >90% ON 9L NC AT THIS TIME.
--- NOTE | 2020-09-27 04:37 | NUR ---
SUMMARY PT HAD NO NEW ISSUES. PT DENIES INCREASED SOB OR CX PAIN. PT CURRENTLY SLEEPING AND BREATHING EASY. CALL LIGHT IN REACH.
[2020-09-27 06:15] LABS: BASOPHILS ABSOLUTE AUTO 0.02 K/mm3 (0.00-0.23); BASOPHILS PERCENT AUTO 0 % (0-2); EOSINOPHILS ABSOLUTE AUTO 0.07 K/mm3 (0.00-0.68); EOSINOPHILS PERCENT AUTO 1 % (0-6); Hematocrit 38.3 % (37.0-53.0); Hemoglobin 12.5 g/dL (13.5-17.5); IMMATURE GRAN ABSOLUTE AUTO 0.12 K/mm3 (0.00-0.10); IMMATURE GRAN PERCENT AUTO 1 % (0-1); LYMPHOCYTES ABSOLUTE AUTO 0.65 K/mm3 (0.84-5.20); LYMPHOCYTES PERCENT AUTO 7 % (21-46); MONOCYTES ABSOLUTE AUTO 0.39 K/mm3 (0.16-1.47); MONOCYTES PERCENT AUTO 4 % (4-13); Mean Corpuscular HGB 29.1 pg (26.0-34.0); Mean Corpuscular HGB Conc 32.6 g/dL (31.5-36.5); Mean Corpuscular Volume 89 fL (80-100); Mean Platelet Volume 10.3 fL (9.1-12.4); NEUTROPHILS ABSOLUTE AUTO 8.57 K/mm3 (1.96-9.15); NEUTROPHILS PERCENT AUTO 87 % (41-73); Platelet Count 213 K/mm3 (150-400); RDW Coefficient Variation 14.6 % (11.7-14.2); RDW Standard Deviation 47.2 fL (35.1-46.3); Red Blood Cell Count 4.29 M/mm3 (4.30-5.90); White Blood Cell Count 9.82 K/mm3 (4.00-11.30)
[2020-09-27 06:31] LABS: Alanine Aminotransfer (ALT/SGP 127 U/L (12-78); Albumin, Blood 2.2 g/dL (3.4-5.0); Albumin/Globulin Ratio 0.5 (0.8-1.8); Alk Phos 107 U/L (50-136); Anion Gap 4 mmol/L (6-16); Aspartate Aminotrans (AST/SGOT 28 U/L (12-37); Bilirubin, Total 0.4 mg/dL (0.1-1.0); Blood Urea Nitrogen 26 mg/dL (8-24); Bun/Creatinine Ratio 28.1 (12.0-20.0); CO2, Blood 30 mmol/L (21-32); Calcium, Blood 8.5 mg/dL (8.5-10.1); Chloride, Blood 103 mmol/L (98-108); Creatinine, Blood 0.93 mg/dL (0.60-1.20); Globulin, Blood 4.4 g/dL (2.2-4.0); Glomerular Filtration Rate >60 (60-); Glucose, Blood 108 mg/dL (70-99); Potassium, Blood 4.3 mmol/L (3.5-5.5); Sodium, Blood 137 mmol/L (136-145); Total Protein, Blood 6.6 g/dL (6.4-8.2)
[2020-09-27] MEDS ORDERED: ACET500 PO (09:02)
[2020-09-27] MEDS ORDERED: ALBU90OI INH (09:03)
[2020-09-27] MEDS ORDERED: AZIT500 PO (09:03)
[2020-09-27] MEDS ORDERED: BISA10S PR (09:05)
[2020-09-27] MEDS ORDERED: CEFP200 PO (09:07)
[2020-09-27] MEDS ORDERED: DOCU100 PO (09:11)
[2020-09-27] MEDS ORDERED: DEXAMETHASONE1 M1 PO (09:11)
[2020-09-27] MEDS ORDERED: ONDA4ODT MM (09:12)
[2020-09-27] MEDS ORDERED: XARELTO15 MG PO (09:12)
[2020-09-27] MEDS ORDERED: MIRALAX17 GM PO (09:12)
[2020-09-27] MEDS ORDERED: DOCUZEN 8.6-501 EACH PO (09:12)
[2020-09-27] MEDS ORDERED: OCEAN104 ML (09:13)
[2020-09-27] MEDS ORDERED: VITAMIN D5000 UNIT PO (09:13)
--- NOTE | 2020-09-27 16:34 | NUR ---
1610: DISCHARGED HOME WITH PRESENT. ALL QUESTIONS ANSWERED AND TEACHBACK METHOD UTILIZED. PATIENT AND VERBALIZED UNDERSTANDING OF THE DISCHARGE INSTRUCIONS AND LEFT WITH ALL OF THEIR PERSONAL BELONGINGS IN THEIR POSSESSION.
== END 2020-09-27 16:16 | disposition home health service (06) | DRG 177 ==
LOC: ER 12:29 → MEDS 14:25 → ENPENDDIS 09-27 08:20 → MEDS 09-27 16:16
PROVIDERS: Emergency Medicine; Family Medicine; Internal Medicine; ADMIT Internal Medicine
PROC: 8E0ZXY6 Isolation (ICD-10-PCS; principal; 2020-09-08)
PROC: XW033E5 Introduction of Remdesivir Anti-infective into Peripheral Vein, Percutaneous Approach, New Technology Group 5 (ICD-10-PCS; 2020-09-08)
PROC: 3E0333Z Introduction of Anti-inflammatory into Peripheral Vein, Percutaneous Approach (ICD-10-PCS; 2020-09-08)
DX: U07.1 COVID-19 (principal); J15.9 Unspecified bacterial pneumonia; J12.82 Pneumonia due to coronavirus disease 2019; J96.21 Acute and chronic respiratory failure with hypoxia; C34.90 Malignant neoplasm of unspecified part of unspecified bronchus or lung; J44.0 Chronic obstructive pulmonary disease with (acute) lower respiratory infection; E87.1 Hypo-osmolality and hyponatremia; M54.5 Low back pain; G89.29 Other chronic pain; R73.9 Hyperglycemia, unspecified; T38.0X5A Adverse effect of glucocorticoids and synthetic analogues, initial encounter; G47.33 Obstructive sleep apnea (adult) (pediatric); R20.2 Paresthesia of skin; Z87.891 Personal history of nicotine dependence; Z86.718 Personal history of other venous thrombosis and embolism; Z95.5 Presence of coronary angioplasty implant and graft; Z88.0 Allergy status to penicillin; Z88.1 Allergy status to other antibiotic agents; Z79.02 Long term (current) use of antithrombotics/antiplatelets; Z79.82 Long term (current) use of aspirin; Z79.899 Other long term (current) drug therapy
CPT/HCPCS: 36415; 71045; 80048; 80053; 80069; 83036; 83735; 83880; 84100; 84145; 84484; 85025; 85027; 86140; 93005; 93010; 94640; 94660; 94664; 94762; 96365; 96366; 96375; 97110; 97162; 97530; 99285-25; A9270; J0456; J0696; J1100; J7050; J7120